=== PATIENT | female | born 1955 | race Caucasian/White ===

== ENCOUNTER 2016-10-19 08:51 | Inpatient (IN) | payer OTHER ==
[~2016-10-19] VITALS: Ht 160 cm; Wt 96.4 kg
--- NOTE | ~2016-10-19 | DS ---
PATIENT'S NAME: GRUPO LOWE [facility] AGE: 61 Y [address] ROOM: [place] [address] LOCATION: [facility] ADMIT DATE: 10/19/2016 Discharge Summary DISCHARGE DATE: 10/25/2016 FAMILY PHYSICIAN: Diana Raymond APRN ATTENDING PHYSICIAN: Ghada Dave FINAL DIAGNOSES: 1. Bilateral pneumonia, right greater than left. 2. Acute exacerbation of asthma. 3. Type 2 diabetes mellitus. 4. Hypertension. 5. Gastroesophageal reflux disease. 6. Hyperlipidemia. PRINCIPAL PROCEDURES: None. REASON FOR ADMIT: This 61-year-old white female came into the office on the basically failing her outpatient treatment with p.o. Levaquin for her pneumonia. She sounded dramatically worse. She was hypoxic with an oxygen saturation of 80% to 91%, and was tachycardic and just felt awful. She is diffusely wheezing, it is found a way worse from her pneumonia. Please see dictated H and P for full details. HOSPITAL COURSE: The patient was admitted and placed on pneumonia pathway for community-acquired pneumonia with IV Rocephin and azithromycin. She did show some improvement; however, with some of her fluid, I think she got a little volume overloaded after it sounded really pretty well, we got a proBNP that was over 1300. We gave her a couple doses of Lasix and that was substantially better, and her shortness of breath was also better, most of her left-sided fluid resolved after that. On the morning of the , she had been on room air basically for 24 hours, was afebrile, and was feeling much better, and was deemed ready for discharge. DISCHARGE INSTRUCTIONS: She will follow up with Diana Raymond in 1 week. She will be on a 2000-calorie ADA diet. Her activity will be as tolerated. Her medications will include, 1. Ceftin 250 mg b.i.d. for 5 days. 2. Promethazine with codeine p.r.n. 3. Aspirin 81 mg daily. 4. Lipitor 10 mg daily. 5. Cetirizine 10 mg daily. 6. Escitalopram 10 mg daily. 7. Losartan 50 mg daily. 8. Metformin 1000 mg b.i.d. 9. Albuterol with ProAir HFA 2 puffs every 4 to 6 hours p.r.n. PATIENT'S NAME: [facility] AGE: 61 Y [address] ROOM: [address] [address] LOCATION: [facility] ADMIT DATE: 10/19/2016 Discharge Summary DISCHARGE DATE: 10/25/2016 FAMILY PHYSICIAN: Diana Raymond APRN ATTENDING PHYSICIAN: Ghada Dave 10. Continue with Florastor 250 mg twice daily until she is off antibiotics. 11. Tramadol 50 mg 3 times a day p.r.n. 12. Victoza 1.8 mg subcu daily. 13. Vitamin B12 1000 mcg p.o. every day. She will call or return if she has any further problems or concerns. She voiced understanding of that plan. GHADA DAVE MD TAB/modl /[id number] d: 10/25/16831 t: 10/26/16831, DISCHARGE SUMMARY
--- NOTE | ~2016-10-19 | ECHO ---
Transthoracic Echocardiography Report (TTE) Demographics Patient Name SHANNON CORONA, Date of Study 10/23/2016 GRU[facility] Valdez Patient Number [id number] Visit Number [id number] Date of 1955 Room Number G3209 Gender Female Number Age 61 year(s) Referring Jolie Valdez MD Rn Cardiac Cath Jose Luis Andrea Physician Segundo Bennett APRN Physician Interpreting Efstratiou Psychiatry Physician Physician Maggy Barnard MD Supervising Ordering Jolie Valdez MD, MD/MLP Physician Nurse Stress Tube Drawer Conclusions Contractility Score Summary Normal Left Ventricular contractility was noted. Summary The estimated left ventricular ejection fraction is 60-65% with normal WM.The left ventricle is normal in size .Mild concentric left ventricular hypertrophy. MAC. Trivial MR. Procedure Type of Study TTE procedure:2D Echocardiogram, M-Mode, Doppler , Color Doppler. Procedure Date Date: 10/23/2016 Start: 01:01 PM Study Location: Echo Lab Technical Quality: Good visualization Indications:Elevated cardiac enzymes. Additional Indications:Elevated BNP Appropriate Use Criteria: 9 Patient Status: Routine HR: 84 bpm BP: 129/59 mmHg M-Mode/2D Measurements LV Diastolic Dimension: 4.88 cm LV Systolic Dimension: 3.22 cm LV Septum Diastolic: 1.05 cm LV PW Diastolic: 0.99 cm AO Root Dimension: 2.7 cm Cardiac Output: 7.5 l/min LA Dimension: 3.3 cm EF Estimated: 65 % LVOT: 1.9 cm LVOT VTI: 31.5 cm RV Base: 2.5 cm LV Stroke volume: 89.27 ml RV Length: 6.47 cm TAPSE: 1.95 cm TDI-S': 18.1 cm/s Doppler Measurements AV Peak Velocity: 1.65 m/s MV Peak E-Wave: 1.22 m/s AV Peak Gradient: 10.89 mmHg MV Peak A-Wave: 1.51 m/s AV Mean Gradient: 9 mmHg MV E/A Ratio: 0.81 LVOT Peak Velocity: 1.61 m/s MV P1/2t: 77 msec MV Deceleration Time: 246 msec TR Gradient:29.38 mmHg PV Peak Velocity: 1.34 m/s Estimated RAP:3 mmHg PV Peak Gradient: 7.18 mmHg Estimated RVSP: 32 mmHg Estimated PASP: 32.38 mmHg E' Septal Velocity: 0.06 m/s A' Septal Velocity: 0.11 m/s E' Lateral Velocity: 0.08 m/s A' Lateral Velocity: 0.15 m/s Findings Left Ventricle The left ventricle is normal in size,WM and EF. Mild concentric left ventricular hypertrophy. Right Ventricle Normal right ventricle structure and function. Left Atrium Normal left atrial size. Right Atrium Normal right atrial size. IVC measures 1.42 cm with inspiratory collapse. Mitral Valve Trivial mitral regurgitation by color Doppler. Mild mitral annular calcification. Aortic Valve Normal aortic valve structure and function. Tricuspid Valve Trivial tricuspid regurgitation by color Doppler. Pulmonic Valve Normal pulmonic valve structure and function. Pericardial Effusion No evidence of pericardial effusion. Miscellaneous Visualized portions of the aortic root and ascending aorta appear normal in size. Pleural Effusion No evidence of pleural effusion. Contractility Score LV regional wall motion:(0-Non visualized 1-Normal 2-Hypokinesis 3-Akinesis 4-Dyskinesis 5-Aneurysm) Signature dtt: Evon Dale dtd: 10/23/16 0209 Physician Self Edit
[2016-10-19 10:28] LABS: BASOPHIL # 0.1 K/uL (0.0-0.2); BASOPHIL % 0.7 %; EOSINOPHIL # 0.3 K/uL (0.0-0.5); EOSINOPHIL % 3.4 %; HEMATOCRIT 31.5 % (33.0-46.0); HEMOGLOBIN 10.7 g/dL (10.0-15.0); IMMATURE GRANULOCYTE # 0.1 K/uL (0.0-0.3); IMMATURE GRANULOCYTE % 0.9 %; LYMPHOCYTE # 1.8 K/uL (0.8-4.0); LYMPHOCYTE % 18.1 %; MCV 94.3 fl (83.0-98.0); MONOCYTE # 0.8 K/uL (0.0-1.0); MONOCYTE % 7.6 %; MPV 9.6 fl (9.4-12.4); NEUTROPHIL # (ANC) 6.9 K/uL (1.8-7.8); NEUTROPHIL % 69.3 %; NRBC % 0 /100WBC (0-0.00); PLATELET COUNT 792 K/uL (150-450); RBC 3.34 M/uL (3.50-5.50); RDW-CV 13.3 % (11.9-14.6)
[2016-10-19 10:46] LABS: ALBUMIN 3.6 gm/dL (3.5-5.0); ANION GAP 12.9 (10.0-19.0); CALCIUM 8.7 mg/dL (8.5-10.5); POTASSIUM 3.9 mMol/L (3.7-5.1); TOTAL PROTEIN 6.9 g/dL (6.0-8.4)
[2016-10-19 10:50] LABS: TOTAL BILIRUBIN 0.6 mg/dL (0.0-1.5)
[2016-10-19 12:36] LABS: BILIRUBIN URINE NEGATIVE (NEGATIVE); BLOOD URINE NEGATIVE /UL (NEGATIVE); COLOR URINE YELLOW (YELLOW); GLUCOSE URINE NEGATIVE (NEGATIVE); KETONE URINE 5 mg/dL (NEGATIVE); LEUKOCYTES URINE NEGATIVE /UL (NEGATIVE); NITRITE URINE NEGATIVE (NEGATIVE); PROTEIN URINE 30 mg/dL (NEGATIVE); TURBIDITY URINE CLEAR (CLEAR); UROBILINOGEN URINE NORMAL (NORMAL)
[2016-10-19 12:50] LABS: BACTERIA URINE FEW (NEGATIVE); MUCUS URINE 3+ (NEGATIVE); RBC URINE 0-2 #/HPF (NEGATIVE); WBC URINE 0-2 #/HPF (NEGATIVE)
[2016-10-19] MEDS ORDERED: LEVAQUIN500 MG PO (13:08)
[2016-10-19] MEDS ORDERED: LEXAPRO10 MG PO (13:09)
[2016-10-19] MEDS ORDERED: LIPITOR10 MG PO (13:09)
[2016-10-19] MEDS ORDERED: PROMETH-CODEIN 65 ML PO (13:09)
[2016-10-19] MEDS ORDERED: COZAAR50 MG PO (13:09)
[2016-10-19] MEDS ORDERED: GLUCOPHAGE1000 MG PO (13:10)
[2016-10-19] MEDS ORDERED: ULTRAM50 MG PO (13:10)
[2016-10-19] MEDS ORDERED: ASPIRIN LO-DOSE81 MG PO (13:11)
[2016-10-19] MEDS ORDERED: ZYRTEC10 MG PO (13:11)
[2016-10-19] MEDS ORDERED: VICTOZA 3-0.6 MG/0.1 SUB-Q (13:11)
[2016-10-19] MEDS ORDERED: PROAIR HFA8.5 GM INH (13:11)
[2016-10-19] MEDS ORDERED: ADVIL200 MG PO (13:12)
[2016-10-19] MEDS ORDERED: VITAMIN B-121000 MCG PO (13:12)
[2016-10-22 08:00] LABS: CALCIUM 8.6 mg/dL (8.5-10.5); CO2 25 mMol/L (22-32); CREATININE 0.8 mg/dL (0.5-1.1); ESTIMATED GFR (MDRD EQUATION) > 60
[2016-10-22 08:16] LABS: ANION GAP 15.2 (10.0-19.0); BLOOD UREA NITROGEN 22 mg/dL (6-24); CHLORIDE 107 mMol/L (96-110); POTASSIUM 4.2 mMol/L (3.7-5.1); SODIUM 143 mMol/L (135-145)
[2016-10-24 05:22] LABS: BASOPHIL % 0.2 %; EOSINOPHIL # 0.1 K/uL (0.0-0.5); EOSINOPHIL % 0.8 %; HEMATOCRIT 33.8 % (33.0-46.0); HEMOGLOBIN 10.9 g/dL (10.0-15.0); IMMATURE GRANULOCYTE # 0.2 K/uL (0.0-0.3); IMMATURE GRANULOCYTE % 1.7 %; LYMPHOCYTE # 2.8 K/uL (0.8-4.0); LYMPHOCYTE % 23.5 %; MCH 29.2 pg (27.0-34.0); MCHC 32.2 gm/dL (32.0-36.5); MCV 90.6 fl (83.0-98.0); MONOCYTE % 8.2 %; MPV 9.4 fl (9.4-12.4); NEUTROPHIL # (ANC) 7.9 K/uL (1.8-7.8); NEUTROPHIL % 65.6 %; NRBC % 0 /100WBC (0-0.00); PLATELET COUNT 899 K/uL (150-450); RBC 3.73 M/uL (3.50-5.50); RDW-CV 13.2 % (11.9-14.6)
[2016-10-24 05:51] LABS: ANION GAP 10.8 (10.0-19.0); BLOOD UREA NITROGEN 19 mg/dL (6-24); CALCIUM 8.3 mg/dL (8.5-10.5); CHLORIDE 103 mMol/L (96-110); CO2 32 mMol/L (22-32); CREATININE 0.9 mg/dL (0.5-1.1); ESTIMATED GFR (MDRD EQUATION) > 60; POTASSIUM 3.8 mMol/L (3.7-5.1); SODIUM 142 mMol/L (135-145)
[2016-10-25] MEDS ORDERED: FLORASTOR250 MG PO (08:35)
[2016-10-25] MEDS ORDERED: CEFTIN500 MG PO (08:36)
== END 2016-10-25 12:45 | disposition disaster alternative care site (69) | DRG 193 ==
LOC: GMSU 08:51
PROVIDERS: ADMIT Family Medicine
DX: J18.9 Pneumonia, unspecified organism (principal); J96.01 Acute respiratory failure with hypoxia; J45.901 Unspecified asthma with (acute) exacerbation; E11.9 Type 2 diabetes mellitus without complications; K21.9 Gastro-esophageal reflux disease without esophagitis; I10 Essential (primary) hypertension; E78.5 Hyperlipidemia, unspecified; Z23 Encounter for immunization
CPT/HCPCS: G0009; J0456; J0696; J1650; J1940; J2930; J7040; J7050; J7512